=== PATIENT | female | born 1975 | race Caucasian/White ===

== ENCOUNTER 2017-01-07 23:58 | Emergency (ER) | payer OTHER ==
[~2017-01-07] VITALS: Ht 160 cm; Wt 83.9 kg
[2017-01-07 23:59] VITALS: BP_SYST 124
[2017-01-08] MEDS ORDERED: LIDOCAINE 1% 10 MG/ML, 20 ML MDV INJ ONE (00:45)
[2017-01-08 01:50] VITALS: BP_SYST 125
== END 2017-01-08 01:50 | disposition home or self-care (01) ==
LOC: SED 23:58
DX: S82.61XA Displaced fracture of lateral malleolus of right fibula, initial encounter for closed fracture (principal); W01.0XXA Fall on same level from slipping, tripping and stumbling without subsequent striking against object, initial encounter; Y93.89 Activity, other specified; Y92.89 Other specified places as the place of occurrence of the external cause; Y99.8 Other external cause status
CPT/HCPCS: 99284